=== PATIENT | male | born 1975 | race Caucasian/White ===

== ENCOUNTER 2023-06-25 13:30 | Emergency (ER) | payer SELFPAY ==
[2023-06-25 13:40] VITALS: BP 165/97; PULSE 94; RESP 16; TEMP 36.8; O2SAT 95; BMI 37.7
--- NOTE | 2023-06-25 13:49 | XR_ITS ---
[facility] [id number] Patient Name: FORTINO SAMSON MRN: [id number] date: 1975 Sex: M Assigned Patient Location: ED.MAIN Current Patient Location: ER Accession/Order Number: [id number] Exam Date: 06/25/2023 14:06 Report Date: 06/25/2023 14:43 At the request of: GRACY PALMA Procedure: XR knee RT 3V EXAM: XR knee RT 3V HISTORY: pain' COMPARISON: None TECHNIQUE: 3 views of the right knee were obtained. FINDINGS: No definite acute fracture or dislocation. Faint calcification overlying the joint space on frontal view likely representing chondrocalcinosis related to degenerative change. Moderate suprapatellar joint effusion suggested. No significant soft tissue swelling. XR/XR knee RT 3V IMPRESSION: Right knee study fails to demonstrate definite acute fracture or dislocation. Moderate size suprapatellar joint effusion suggested. Follow-up as needed. Electronically authenticated by: SUZY VERAS Date: 06/25/2023 14:43
[2023-06-25] MEDS: HYDROCODONE/ACET 5-325 MG TABLET 1 TAB PO (14:06)
--- NOTE | 2023-06-25 14:10 | ED.GENADUL1 ---
HPI - General Adult General Chief complaint: Extremity Injury, Lower Stated complaint: LOWER EXTREMITY SWELLING TO RIGHT KNEE Time Seen by Provider: 06/25/23 13:39 Source: patient Mode of arrival: Wheelchair Limitations: no limitations History of Present Illness HPI narrative: Patient is a 47-year-old male who is presenting to the Emergency Room with chief complaint Of right knee pain, right knee swelling. Patient felt a popping sensation yesterday when he is working. 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 Patient went to stand up, and he felt a popping sensation behind the right knee and the right lateral aspect of his right knee. Patient has had tore meniscus to his left knee before where he had one scope. Patient does have an orthopedic surgeon in [place]. Patient call the office, they cannot see him today so he can't to the Emergency Room for evaluation. Patient had Tylenol yesterday for his pain, took nothing today. Son is at bedside. Patient has been alternating ice and heat. Patient was educated on using ice only. Patient has no other acute complaints. . All systems are negative except as noted/marked. All systems reviewed and otherwise negative. . Nurses note and vital signs reviewed and patient is not hypoxic. General: The patient appears well and in no apparent distress. Patient is resting comfortably on cart. Patient is not toxic, lethargic, or listless Skin: Warm, dry, no pallor noted. There is no rash noted. No petechiae, purpura. Head: Normocephalic, atraumatic Eye: Normal conjunctiva, no drainage, EOMI. PERRL Ears, Nose, Mouth, and Throat: oral mucosa is moist. Nares patent. Mouth without vesicles. Cardiovascular: Regular Rate and Rhythm, no murmur, gallop, rub Respiratory: Patient is in no distress, no accessory muscle use, lungs are clear to auscultation, no wheezing, rales or rhonchi Musculoskeletal: Patient has full range of motion of all of the extremities Except to his right knee. Patient does have a mild to moderate superolateral knee effusion, no evidence of hemarthrosis. No ecchymosis. Patient can flex approximately 25-35 degrees, he has full extension. No pain with varus or valgus stress. No obvious anterior posterior drawer sign. Compared to the right leg, does not appear patient has a positive answer posterior drawer sign. Patient has minimal swelling to the Popliteal fossa of the right leg. No pain to proximal fibular head. Full range of motion of right hip, ankle and foot with no difficulty., no motor, sensory, or focal neurological deficits. Neurological: A&O x3, normal speech Psychiatric: Cooperative Related Data Previous Rx's Medication Instructions Recorded hydrocodone 5 mg-acetaminophen 325 1 tab PO Q4H PRN pain #10 tabs 06/25/23 mg tablet Allergies Allergy/AdvReac Type Severity Reaction Status Date / Time Penicillins AdvReac Severe Shakiness Verified 06/25/23 13:45 PFSH PFSH Social History Smoking status: Heavy tobacco smoker Exam Constitutional Vital Signs, click to edit/add: Last Vital Signs Temp 98.2 F 06/25/23 13:40 Pulse 94 H 06/25/23 13:40 Resp 16 06/25/23 13:40 BP 165/97 H 06/25/23 13:40 Pulse Ox 95 06/25/23 13:40 O2 Del Method Room Air 06/25/23 13:40 Course Vital Signs Vital signs: Vital Signs Temperature 98.2 F 06/25/23 13:40 Pulse Rate 94 H 06/25/23 13:40 Respiratory Rate 16 06/25/23 13:40 Blood Pressure 165/97 H 06/25/23 13:40 Pulse Oximetry 95 06/25/23 13:40 Oxygen Delivery Method Room Air 06/25/23 13:40 Temperature 98.2 F 06/25/23 13:40 Pulse Rate 94 H 06/25/23 13:40 Respiratory Rate 16 06/25/23 13:40 Blood Pressure 165/97 H 06/25/23 13:40 Pulse Oximetry 95 06/25/23 13:40 Oxygen Delivery Method Room Air 06/25/23 13:40 Medical Decision Making MDM Narrative Medical decision making narrative: Patient was educated using ice 20 minutes on, 20 minutes off. Patient right knee x-ray shows joint effusion, no other acute abnormalities. Patient was placed in a right knee immobilizer to the right knee, patient has crutches. Splint was assisted with . the patient was neurovascularly intact before and after the splint was placed. the affected bones/injured area had proper alignment in a splint. Education on splint care at home was given at bedside. Patient and family have no questions at discharge. Patient will call [place] orth[facility] in follow-up next week. Patient was educated using ice and no more heat, she has been doing. Patient cannot take anti-inflammatories secondary to her condition medication. Patient was educated not taking Tylenol with narcotics Discharge Plan Discharge Chief Complaint: Extremity Injury, Lower Clinical Impression: Right knee sprain, Knee joint pain, Acute internal derangement of right knee Patient Disposition: Home, Self-Care Time of Disposition Decision: 14:32 Condition: Fair Prescriptions / Home Meds: New hydrocodone-acetaminophen 5-325 mg tablet 1 tab PO Q4H PRN (Reason: pain) Qty: 10 0RF Instructions: Knee Sprain (DC), Crutch Instructions (ED), Knee Pain (ED), P.R.I.C.E. Treatment (ED) Additional Instructions: Do not use heat. Use ice 20 minutes on, 20 minutes off Use at all times besides ice or shower. Work restrictions given. Do not take Tylenol with [place], he could actually take too much Tylenol together. Called today to follow-up with here orthopedic surgery office in [place]. Stand Alone Forms: Portal Instructions Referrals: Noemi Colin NP [Primary Care Provider] - 1 week
== END 2023-06-25 14:42 | disposition home or self-care (01) ==
PROVIDERS: Emergency Provider Emergency Medicine; PCP Nurse Practitioner
DX: S83.91XA Sprain of unspecified site of right knee, initial encounter (principal); M23.91 Unspecified internal derangement of right knee; M25.561 Pain in right knee; X50.9XXA Other and unspecified overexertion or strenuous movements or postures, initial encounter; F17.210 Nicotine dependence, cigarettes, uncomplicated
CPT/HCPCS: 73562; 99284